=== PATIENT | male | born 1975 | race Caucasian/White ===

== ENCOUNTER 2017-01-04 16:32 | Emergency (ER) | payer MEDICAID ==
[2017-01-04] MEDS ORDERED: Sodium Chloride 0.9% 10 ML Syringe FLUSH PRN (17:05)
--- NOTE | 2017-01-04 19:33 | EDM.PDOC ---
ED HISTORY OF PRESENT ILLNESS - General Chief Complaint: Chest Pain Stated Complaint: CHEST PAIN/SOB Time Seen by Provider: 01/04/17 17:02 Source of Information: Reports: Patient History Limitations: Reports: No limitations - History of Present Illness INITIAL COMMENTS - FREE TEXT/NARRATIVE: Patient presents for evaluation and treatment of chest pain. Patient reports that about one hour prior to arrival in the ER he experienced a sharp "electrical shock" in his chest. He states that it did not last more than 1 second. He reports he is also been experiencing "some "shortness of breath. Patient also reports prior to the electrical sensation he felt chills and tingling on the right side of his face. He states that he has had these electrical shock sensations before, however, the tingling and chills is what prompted his visit to the ER tonight. Patient reports this occurred while he was at work. He works construction. He denies any lightheadedness, dizziness, syncope, nausea, vomiting or diaphoresis. the patient reports that he does not smoke. He states that 2 weeks ago he did use methamphetamine. Patient is a diabetic. He states he has not been checking his blood sugars recently. He denies any polyuria or polydipsia. He reports some dryness of his mouth. Patient reports that he recently relocated to [place] from [place]. He states since relocating to [place] he has noticed itchiness to his arms and legs. He states that it is worse at night. He reports that he lives in a [facility]. He reports that prior to [place] he was living with a roommate whose child had some type of contagious, pruritic skin irritate. He was never told what the diagnosis was. - Related Data Allergies/ADRs: Allergies Allergy/AdvReac Type Severity Reaction Status Date / Time No Known Allergies Allergy Verified 01/04/17 19:44 Home Meds: Home Meds . [Unable to Verify Home Med List] 01/04/17 [History] Past Medical History Cardiovascular History: Reports: High cholesterol Endocrine/Metabolic History: Reports: Diabetes, type II Social & Family History - Tobacco Use Smoking Status *Q: Never Smoker - Caffeine Use Caffeine Use: Reports: Soda - Recreational Drug Use Recreational Drug Use: Yes Recreational Drug Type: Reports: Methamphetamine ED ROS GENERAL - Review of Systems Review Of Systems: See Below Constitutional: Denies: fever Respiratory: Reports: Shortness of Breath. Denies: Cough Cardiovascular: Reports: Chest pain Endocrine: Denies: polydypsia, polyuria GI/Abdominal: Denies: Abdominal pain, Nausea, Vomiting Skin: Reports: pruritis Neurological: Reports: Numbness (right side of face), Tingling (right side of face). Denies: Dizziness, Syncope ED EXAM, GENERAL - Physical Exam Exam: See Below Exam Limited By: No limitations General Appearance: alert, WD/WN, no apparent distress, obese Respiratory/Chest: no respiratory distress, lungs clear, normal breath sounds Cardiovascular: normal peripheral pulses, regular rate, rhythm, no murmur Peripheral Pulses: 2+: radial (L), radial (R) GI/Abdominal: normal bowel sounds, soft, non tender Neurological: alert, oriented, normal cognition Psychiatric: normal affect, normal mood Skin Exam: Warm, Dry, Normal color, Other (erythatmous macules approximately 1- 2 mm in diameter to the distal forearms and distal lower legs consistent with scabies) EKG INTERPRETATION EKG Date: 01/04/17 Time: 16:40 Rhythm: NSR Rate (beats/min): 84 Douglass: normal P-wave: present QRS: normal ST-T: normal QT: normal EKG Interpretation Comments: NSR at 84 bpm. Essentially normal EKG. No ischemic changes. Reviewed by myself and Dr. Mata. Course - Vital Signs Last Recorded V/S: Last Vital Signs Temp 36.6 C 01/04/17 19:50 Pulse 78 01/04/17 19:50 Resp 18 01/04/17 19:50 BP 130/74 01/04/17 19:50 Pulse Ox 100 01/04/17 19:50 - Orders/Labs/Meds Labs: Laboratory Tests 01/04/17 01/04/17 01/04/17 Range/Units 17:30 17:30 17:30 WBC 7.46 (4.23-9.07) K/mm3 RBC 5.37 (4.63-6.08) M/mm3 Hgb 16.3 (13.7-17.5) gm/L Hct 48.2 (40.1-51.0) % MCV 89.8 (79.0-92.2) fl MCH 30.4 (25.7-32.2) pg MCHC 33.8 (32.2-35.5) g/dl RDW Std Deviation 45.7 H (35.1-43.9) fL Plt Count 238 (163-337) K/mm3 MPV 9.4 (9.4-12.3) fl Neut % (Auto) 63.1 (34.0-67.9) % Lymph % (Auto) 27.9 (21.8-53.1) % Graham % (Auto) 6.4 (5.3-12.2) % Eos % (Auto) 1.9 (0.8-7.0) Baso % (Auto) 0.3 (0.1-1.2) % Neut # (Auto) 4.71 (1.78-5.38) K/mm3 Lymph # (Auto) 2.08 (1.32-3.57) K/mm3 Graham # (Auto) 0.48 (0.30-0.82) K/mm3 Eos # (Auto) 0.14 (0.04-0.54) K/mm3 Baso # (Auto) 0.02 (0.01-0.08) K/mm3 Sodium 140 (136-145) mEq/L Potassium 3.9 (3.5-5.1) mEq/L Chloride 102 (98-107) mEq/L Carbon Dioxide 27 (21-32) mEq/L Anion Gap 14.9 (5-15) BUN 16 (7-18) mg/dL Creatinine 1.0 (0.7-1.3) mg/dL Est Cr Clr Drug Dosing 105.63 mL/min Estimated GFR (MDRD) > 60 (>60) mL/min BUN/Creatinine Ratio 16.0 (14-18) Glucose 129 H (74-106) mg/dL Calcium 8.9 (8.5-10.1) mg/dL Magnesium 1.9 (1.8-2.4) mg/dl Total Bilirubin 0.4 (0.2-1.0) mg/dL AST 8 L (15-37) U/L ALT 36 (16-63) U/L Alkaline Phosphatase 98 (46-116) U/L Troponin I < 0.017 (0.00-0.056) ng/mL B-Natriuretic Peptide < 15 (0-100) pg/mL Total Protein 7.5 (6.4-8.2) g/dl Albumin 3.9 (3.4-5.0) g/dl Globulin 3.6 gm/dL Albumin/Globulin Ratio 1.1 (1-2) Urine Color (Yellow) Urine Appearance (Clear) Urine pH (5.0-8.0) Ur Specific Cook (1.005-1.030) Urine Protein (Negative) Urine Glucose (UA) (Negative) Urine Ketones (Negative) Urine Occult Blood (Negative) Urine Nitrite (Negative) Urine Bilirubin (Negative) Urine Urobilinogen (0.2-1.0) Ur Leukocyte Esterase (Negative) Urine RBC (0-5) /hpf Urine WBC (0-5) /hpf Ur Epithelial Cells (0-5) /hpf Urine Bacteria (FEW) /hpf Urine Mucus (FEW) /hpf 01/04/17 Range/Units 19:00 WBC (4.23-9.07) K/mm3 RBC (4.63-6.08) M/mm3 Hgb (13.7-17.5) gm/L Hct (40.1-51.0) % MCV (79.0-92.2) fl MCH (25.7-32.2) pg MCHC (32.2-35.5) g/dl RDW Std Deviation (35.1-43.9) fL Plt Count (163-337) K/mm3 MPV (9.4-12.3) fl Neut % (Auto) (34.0-67.9) % Lymph % (Auto) (21.8-53.1) % Graham % (Auto) (5.3-12.2) % Eos % (Auto) (0.8-7.0) Baso % (Auto) (0.1-1.2) % Neut # (Auto) (1.78-5.38) K/mm3 Lymph # (Auto) (1.32-3.57) K/mm3 Graham # (Auto) (0.30-0.82) K/mm3 Eos # (Auto) (0.04-0.54) K/mm3 Baso # (Auto) (0.01-0.08) K/mm3 Sodium (136-145) mEq/L Potassium (3.5-5.1) mEq/L Chloride (98-107) mEq/L Carbon Dioxide (21-32) mEq/L Anion Gap (5-15) BUN (7-18) mg/dL Creatinine (0.7-1.3) mg/dL Est Cr Clr Drug Dosing mL/min Estimated GFR (MDRD) (>60) mL/min BUN/Creatinine Ratio (14-18) Glucose (74-106) mg/dL Calcium (8.5-10.1) mg/dL Magnesium (1.8-2.4) mg/dl Total Bilirubin (0.2-1.0) mg/dL AST (15-37) U/L ALT (16-63) U/L Alkaline Phosphatase (46-116) U/L Troponin I (0.00-0.056) ng/mL B-Natriuretic Peptide (0-100) pg/mL Total Protein (6.4-8.2) g/dl Albumin (3.4-5.0) g/dl Globulin gm/dL Albumin/Globulin Ratio (1-2) Urine Color Yellow (Yellow) Urine Appearance Clear (Clear) Urine pH 5.5 (5.0-8.0) Ur Specific Cook > or = 1.030 (1.005-1.030) Urine Protein Trace H (Negative) Urine Glucose (UA) 1+ H (Negative) Urine Ketones Negative (Negative) Urine Occult Blood Negative (Negative) Urine Nitrite Negative (Negative) Urine Bilirubin Negative (Negative) Urine Urobilinogen 0.2 (0.2-1.0) Ur Leukocyte Esterase Negative (Negative) Urine RBC 0-5 (0-5) /hpf Urine WBC 0-5 (0-5) /hpf Ur Epithelial Cells Not seen (0-5) /hpf Urine Bacteria Few (FEW) /hpf Urine Mucus Moderate H (FEW) /hpf Meds: Medications Discontinued Medications Generic Name Dose Route Start Last Admin Trade Name Freq PRN Reason Stop Dose Admin Sodium Chloride 10 ml 01/04/17 17:05 01/04/17 17:20 Saline Flush FLUSH 10 ml ASDIRECTED PRN Administration Keep Vein Open - Radiology Interpretation Free Text/Narrative:: chest xray shows no acute intrathoracic process. - Re-Assessments/Exams Free Text/Narrative Re-Assessment/Exam: 01/04/17 19:39 The patient's lab studies returned. White blood cell count of 7.46, hemoglobin 16.3 and platelets are 238. Sodium is 140, potassium is 3.9 chloride is 102. Anion gap is 14.9. Glucose is 129. Troponin is within normal limits at less than 0.017. BMP is within normal limits a less than 15. Magnesium is 1.9. UA has 1+ glucose and trace protein. Negative for any ketones, nitrates or leukocytes. I discussed the EKG, chest x-ray and lab results with the patient. I feel that the sensation he felt with his chest was likely a nerve impulse or a muscle spasm. I do not believe it has anything to do with his heart. I believe that the rash is scabies. I prescribed him some cream for the scabies. Will discharge home at this time. Discharge instructions as documented. Departure - Departure Time of Disposition: 19:38 Disposition: Home, Self-Care 01 Condition: fair Clinical Impression: Scabies, Atypical chest pain Instructions: Nonspecific Chest Pain, Scabies, Adult Referrals: PCP,None [Primary Care Provider] - Forms: ED Department Discharge Additional Instructions: Apply permethrin as prescribed. Apply to entire body, leave on 8-14 hours before showering. Reapply 2 weeks later. Continue with your current plan of care. If you remain in [place] I recommend Andrés Cutler or Stephania Nunez for your general medical care. Call [phone] to schedule with on of them. Please return to the ER should your symptoms change or worsen.
[2017-01-04 20:05] VITALS: BP 130/74
--- NOTE | 2017-01-05 09:59 | CR ---
Chest: Portable view of the chest was obtained. Comparison: No previous study. Heart size and mediastinum are normal. Lungs are clear. Bony structures are grossly intact. Impression: 1. Nothing acute is identified on portable chest x-ray. Diagnostic code #1
== END 2017-01-04 19:50 | disposition home or self-care (01) ==
LOC: JD.ED 16:32
DX: R07.89 Other chest pain (principal); B86 Scabies; E11.9 Type 2 diabetes mellitus without complications; E78.00 Pure hypercholesterolemia, unspecified
CPT/HCPCS: 36415; 71010; 80053; 81001; 83735; 83880; 84484; 85025; 93005; 99285; J7050; 99284